=== PATIENT | male | born 1955 | race Caucasian/White ===

== ENCOUNTER 2017-08-18 10:49 | Emergency (ER) | payer MEDICARE ==
[~2017-08-18] VITALS: Ht 165.1 cm; Wt 85.8 kg
[~2017-08-18 10:49] MED LIST: CYCL-259 PO; ENAL10TA PO; IBUP-1222 PO; METF10002 PO
[2017-08-18] MEDS ORDERED: MULT-658 PO (12:02)
[2017-08-18] MEDS ORDERED: MORPHINE SULFATE 4 MG/ML, 1ML IVPush PRN (12:30)
[2017-08-18] MEDS ORDERED: SODIUM CHLORIDE FLUSH 10ML SYR IVF ONE (12:30)
[2017-08-18] MEDS ORDERED: MORPHINE SULFATE 4 MG/ML, 1ML ONE (12:48)
[2017-08-18 12:53] LABS: BASOPHILS # (AUTO) 0.03 x10^3/uL (0-0.1); BASOPHILS % (AUTO) 0 % (0-1); EOSINOPHILS # (AUTO) 0.16 x10^3/uL (0-0.4); EOSINOPHILS % (AUTO) 2 % (1-7); LYMPHOCYTES # (AUTO) 2.59 x10^3/uL (1-3.4); LYMPHOCYTES % (AUTO) 31 % (22-44); MD NO; MEAN CORPUSCULAR HEMOGLOBIN 30.5 pg (27.5-34.5); MEAN CORPUSCULAR HGB CONC 33.9 g/dL (33.2-36.2); MEAN CORPUSCULAR VOLUME 89.9 fL (81-97); MEAN PLATELET VOLUME 7.3 fL (7.4-10.4); MONOCYTES # (AUTO) 0.78 x10^3/uL (0.2-0.8); MONOCYTES % (AUTO) 9 % (2-9); NEUTROPHILS # (AUTO) 4.76 x10^3/uL (1.8-6.8); NEUTROPHILS % (AUTO) 57 % (42-75); PLATELET COUNT 241 x10^3/uL (130-400); RED BLOOD COUNT 4.94 x10^6/uL (4.38-5.82); RED CELL DISTRIBUTION WIDTH 14.5 % (9.4-14.8)
[2017-08-18 12:53] LABS: MICROSCOPIC NOT IND
[2017-08-18 12:58] LABS: CULTURE INDICATED? NO
[2017-08-18 13:07] LABS: ALANINE AMINOTRANSFERASE 27 U/L (12-78); ALBUMIN 3.4 g/dL (3.4-5.0); ANION GAP 6 mmol/L (5-15); CALCIUM 8.4 mg/dL (8.5-10.1); CHLORIDE 108 mmol/L (98-107); CREATININE 0.94 mg/dL (0.7-1.3)
[2017-08-18 13:09] LABS: ALKALINE PHOSPHATASE 78 U/L (45-117); BILIRUBIN,TOTAL 0.5 mg/dL (0.2-1.0); TOTAL PROTEIN 7.1 g/dL (6.4-8.2)
[2017-08-18] MEDS ORDERED: OMNIPAQUE 350 MG/ML, 100ML BOTTLE ONE (14:12)
[2017-08-18 16:20] VITALS: BP 139/79
== END 2017-08-18 16:24 | disposition home or self-care (01) ==
LOC: ED 15:45
DX: R10.32 Left lower quadrant pain (principal); I10 Essential (primary) hypertension; E11.9 Type 2 diabetes mellitus without complications; J44.9 Chronic obstructive pulmonary disease, unspecified; Z90.49 Acquired absence of other specified parts of digestive tract
CPT/HCPCS: 36415; 74177; 80053; 81003; 83690; 85025; 93005; 96374; 99285; Q9967

== ENCOUNTER 2019-10-28 19:23 | Inpatient (IN) | payer MEDICARE ==
[~2019-10-28] VITALS: Ht 165.1 cm; Wt 82.2 kg
[~2019-10-28 19:23] MED LIST changes: +MULT-658 PO
--- NOTE | 2019-10-28 19:53 | NUR ---
PT WHEELED TO ROOM, TALKING WITH TECH.
--- NOTE | 2019-10-28 20:01 | NUR ---
PT COMING FROM HOME FOR L SIDE SUPRAPUBIC PAIN THAT STARTED 2 DAYS AGO. PT NOTES INCREASED URINARY FREQUENCY STARTING TODAY, STATES "IT FEELS LIKE I NEED MORE PRESSURE TO GO." UNKNOW PROSTATE HX, USED TO TAKE AN UNKNOWN PROSTATE MED, NO LONGER TAKES IT.
[2019-10-28] MEDS ORDERED: ONDANSETRON 2MG/ML, 2ML ONE (20:23)
[2019-10-28] MEDS ORDERED: MORPHINE SULFATE 4 MG/ML, 1ML ONE (20:24)
[2019-10-28] MEDS ORDERED: MORPHINE SULFATE 4 MG/ML, 1ML IVPush PRN (20:30)
[2019-10-28] MEDS ORDERED: ONDANSETRON 2MG/ML, 2ML IVPush ONE (20:30)
[2019-10-28] MEDS ORDERED: SODIUM CHLORIDE FLUSH 10ML SYR IVF ONE (20:30)
--- NOTE | 2019-10-28 20:38 | NUR ---
PT MEDICATED TO MAR, LAYING IN BED, EYES CLOSED, RESPIRATIONS EVEN AND UNLABORED, WILL CONTINUE TO MONITOR.
[2019-10-28 20:42] LABS: MICROSCOPIC NOT IND
[2019-10-28 20:56] LABS: BASOPHILS # (AUTO) 0.05 x10^3/uL (0-0.1); BASOPHILS % (AUTO) 1 % (0-1); EOSINOPHILS # (AUTO) 0.15 x10^3/uL (0-0.4); EOSINOPHILS % (AUTO) 2 % (1-7); LYMPHOCYTES # (AUTO) 2.25 x10^3/uL (1-3.4); LYMPHOCYTES % (AUTO) 26 % (22-44); MD NO; MEAN CORPUSCULAR HEMOGLOBIN 30.5 pg (27.5-34.5); MEAN CORPUSCULAR HGB CONC 33.5 g/dL (33.2-36.2); MEAN CORPUSCULAR VOLUME 91.1 fL (81-97); MEAN PLATELET VOLUME 7.8 fL (7.4-10.4); MONOCYTES # (AUTO) 0.76 x10^3/uL (0.2-0.8); MONOCYTES % (AUTO) 9 % (2-9); NEUTROPHILS # (AUTO) 5.41 x10^3/uL (1.8-6.8); NEUTROPHILS % (AUTO) 63 % (42-75); PLATELET COUNT 203 x10^3/uL (130-400); RED BLOOD COUNT 5.36 x10^6/uL (4.38-5.82); RED CELL DISTRIBUTION WIDTH 14.7 % (9.4-14.8)
[2019-10-28 21:03] LABS: ALANINE AMINOTRANSFERASE 30 U/L (12-78); ALBUMIN 3.2 g/dL (3.4-5.0); ANION GAP 6 mmol/L (5-15); CALCIUM 8.3 mg/dL (8.5-10.1); CHLORIDE 106 mmol/L (98-107); CREATININE 1.27 mg/dL (0.7-1.3)
[2019-10-28 21:06] LABS: ALKALINE PHOSPHATASE 76 U/L (45-117); BILIRUBIN,TOTAL 0.4 mg/dL (0.2-1.0)
--- NOTE | 2019-10-28 21:16 | NUR ---
PT SLEEPING, EYES CLOSED, RESPIRATIONS EVEN AND UNLABORED, SNORING HEARD. REMAINS AT BEDSIDE.
--- NOTE | 2019-10-28 21:22 | NUR ---
PT TO IMAGING.
[2019-10-28] MEDS ORDERED: OMNIPAQUE 350 MG/ML, 100ML BOTTLE ONE (21:31)
--- NOTE | 2019-10-28 22:15 | NUR ---
ERP TO BEDSIDE, UPDATING PT ON POC. ALL NEEDS MET AT THIS TIME.
--- NOTE | 2019-10-28 22:43 | NUR ---
ADMITTING MD TO BEDSIDE.
[2019-10-28] MEDS ORDERED: LISI-170 PO (22:46)
--- NOTE | 2019-10-28 22:55 | NUR ---
REPORT GIVEN TO LUZ RODRIGUEZ.
[2019-10-28] MEDS ORDERED: hydrALAzine 20 MG/ML, 1ML IVPush PRN (23:00)
[2019-10-28] MEDS ORDERED: SODIUM CHLORIDE FLUSH 10ML SYR IVF PRN (23:00)
[2019-10-28] MEDS ORDERED: TRAZODONE 50MG TABLET PO PRN (23:00)
[2019-10-28] MEDS ORDERED: ONDANSETRON 2MG/ML, 2ML IVPush PRN (23:00)
[2019-10-28] MEDS: LACTATED RINGERS 1,000 ML IV SCH (23:00)
[2019-10-28] MEDS ORDERED: GABAPENTIN 300 MG CAPSULE PO PRN (23:00)
[2019-10-28] MEDS ORDERED: morphine SULFATE 10 MG/ML, 1ML IVPush PRN (23:00)
[2019-10-28] MEDS ORDERED: ACETAMINOPHEN 325 MG TABLET PO PRN (23:00)
[2019-10-28 23:45] VITALS: BP 153/81
[2019-10-29] MEDS ORDERED: INSULIN LISPRO 100 UNIT/ML, 3ML VIAL SQ-INSULIN ONE (00:30)
[2019-10-29] MEDS: NICOTINE 21 MG/24 HR PATCH.TD24 TD SCH ×2 (00:40→23:54)
[2019-10-29 01:01] VITALS: BP 160/89
[2019-10-29] MEDS: INSULIN LISPRO 100 UNITS/ML, PEN SQ-INSULIN SCH ×4 (07:00→20:52)
[2019-10-29 07:17] VITALS: BP 157/81
[2019-10-29] MEDS: TAMSULOSIN 0.4 MG CAP.ER.24H PO SCH (08:01)
[2019-10-29] MEDS: SENNA/DOCUSATE TABLET PO SCH (08:02)
[2019-10-29] MEDS: LACTATED RINGERS 1,000 ML IV SCH ×2 (08:03→20:52)
[2019-10-29 14:51] VITALS: BP 124/80
[2019-10-29 19:11] VITALS: BP 148/79
[2019-10-30 00:40] VITALS: BP 151/79
[2019-10-30 05:50] LABS: CHLORIDE 109 mmol/L (98-107)
[2019-10-30 05:57] LABS: ALANINE AMINOTRANSFERASE 41 U/L (12-78); ALKALINE PHOSPHATASE 80 U/L (45-117); ANION GAP 9 mmol/L (5-15); BILIRUBIN,TOTAL 0.6 mg/dL (0.2-1.0); CALCIUM 8.7 mg/dL (8.5-10.1); CREATININE 0.99 mg/dL (0.7-1.3); TOTAL PROTEIN 6.6 g/dL (6.4-8.2)
[2019-10-30 07:24] LABS: BASOPHILS # (AUTO) 0.04 x10^3/uL (0-0.1); BASOPHILS % (AUTO) 1 % (0-1); EOSINOPHILS # (AUTO) 0.11 x10^3/uL (0-0.4); EOSINOPHILS % (AUTO) 1 % (1-7); LYMPHOCYTES # (AUTO) 1.86 x10^3/uL (1-3.4); LYMPHOCYTES % (AUTO) 24 % (22-44); MD NO; MEAN CORPUSCULAR HEMOGLOBIN 30.5 pg (27.5-34.5); MEAN CORPUSCULAR HGB CONC 33.6 g/dL (33.2-36.2); MEAN CORPUSCULAR VOLUME 90.8 fL (81-97); MEAN PLATELET VOLUME 7.2 fL (7.4-10.4); MONOCYTES # (AUTO) 0.54 x10^3/uL (0.2-0.8); MONOCYTES % (AUTO) 7 % (2-9); NEUTROPHILS # (AUTO) 5.29 x10^3/uL (1.8-6.8); NEUTROPHILS % (AUTO) 68 % (42-75); PLATELET COUNT 185 x10^3/uL (130-400); RED BLOOD COUNT 5.12 x10^6/uL (4.38-5.82); RED CELL DISTRIBUTION WIDTH 14.4 % (9.4-14.8)
[2019-10-30 08:02] VITALS: BP 134/82
[2019-10-30] MEDS ORDERED: THIAMINE 100MG TABLET PO SCH (09:00)
[2019-10-30] MEDS ORDERED: FOLIC ACID 1 MG TABLET PO SCH (09:00)
[2019-10-30] MEDS: SENNA/DOCUSATE TABLET PO SCH (09:00)
[2019-10-30] MEDS: TAMSULOSIN 0.4 MG CAP.ER.24H PO SCH (09:02)
[2019-10-30] MEDS: INSULIN LISPRO 100 UNITS/ML, PEN SQ-INSULIN SCH ×2 (09:02→11:00)
[2019-10-30 14:45] VITALS: BP 160/81
[2019-10-30] MEDS ORDERED: ATOR40TA78 PO (16:34)
== END 2019-10-30 16:39 | disposition home or self-care (01) | DRG 440 ==
LOC: ED 21:06 → EDIP 22:48 → 3N 23:16 → DCLOUNGE 10-30 16:35
PROVIDERS: ADMIT Family Medicine; ATTEND Family Medicine
DX: K85.20 Alcohol induced acute pancreatitis without necrosis or infection (principal); E11.65 Type 2 diabetes mellitus with hyperglycemia; E11.40 Type 2 diabetes mellitus with diabetic neuropathy, unspecified; I10 Essential (primary) hypertension; F17.210 Nicotine dependence, cigarettes, uncomplicated; F10.20 Alcohol dependence, uncomplicated; J44.9 Chronic obstructive pulmonary disease, unspecified; Z96.641 Presence of right artificial hip joint; N40.0 Benign prostatic hyperplasia without lower urinary tract symptoms; K40.90 Unilateral inguinal hernia, without obstruction or gangrene, not specified as recurrent; Z91.14 Patient's other noncompliance with medication regimen; Z90.49 Acquired absence of other specified parts of digestive tract; Z88.0 Allergy status to penicillin; Z88.8 Allergy status to other drugs, medicaments and biological substances; Z79.84 Long term (current) use of oral hypoglycemic drugs; Z82.49 Family history of ischemic heart disease and other diseases of the circulatory system
CPT/HCPCS: 36415; 74177; 80053; 81003; 82962; 83036; 83690; 84478; 85025; 99285; G0378; J2405; Q9967; J1815; J2270; J7120

== ENCOUNTER 2020-03-18 10:26 | Emergency (ER) | payer MEDICARE ==
[~2020-03-18] VITALS: Ht 165.1 cm; Wt 79.2 kg
[~2020-03-18 10:26] MED LIST changes: +ATOR40TA78 PO; -ENAL10TA PO; +ENAL10TA9 PO; +LISI-170 PO
[2020-03-18] MEDS ORDERED: ONDANSETRON ODT 4 MG PO ONE (11:30)
[2020-03-18] MEDS ORDERED: HYDROcodone/APAP 5/325 TABLET PO ONE (11:30)
[2020-03-18] MEDS ORDERED: ONDANSETRON ODT 4 MG ONE (11:37)
[2020-03-18] MEDS ORDERED: HYDROcodone/APAP 5/325 TABLET ONE (11:37)
--- NOTE | 2020-03-18 11:41 | NUR ---
FIRST CONTACT W/ PT R/T PT LOAD. THIS IS A 64 YO M W/ C/O GERNAL ABD PAIN XSEVERAL DAYS. PT DENIES N/V. PT RESTING ON GURNEY W/ CALL LIGHT IN REACH AND FAMILY AT BEDSIDE. PT MEDCIATED PER EMAR. PROVIDED W/ URINAL AND EDUCATED ON NEED FOR URINE SAMPLE. RESP EVEN AND UNLABORED, NADN. AWAITING US.
[2020-03-18 11:42] VITALS: BP 165/96
[2020-03-18 12:11] LABS: BASOPHILS % (AUTO) 1 % (0-1); EOSINOPHILS % (AUTO) 2 % (1-7); LYMPHOCYTES % (AUTO) 33 % (22-44); MEAN CORPUSCULAR HEMOGLOBIN 30.7 pg (27.5-34.5); MEAN CORPUSCULAR HGB CONC 33.3 g/dL (33.2-36.2); MEAN PLATELET VOLUME 7.3 fL (7.4-10.4); MONOCYTES % (AUTO) 9 % (2-9); NEUTROPHILS % (AUTO) 56 % (42-75); PLATELET COUNT 252 x10^3/uL (130-400); RED BLOOD COUNT 5.18 x10^6/uL (4.38-5.82); RED CELL DISTRIBUTION WIDTH 13.7 % (9.4-14.8)
[2020-03-18 12:15] LABS: MD NO
--- NOTE | 2020-03-18 12:16 | NUR ---
PT IN US
[2020-03-18 12:23] LABS: ALBUMIN 3.5 g/dL (3.4-5.0); ANION GAP 5 mmol/L (5-15); CALCIUM 8.7 mg/dL (8.5-10.1); CHLORIDE 107 mmol/L (98-107)
[2020-03-18 12:26] LABS: ALANINE AMINOTRANSFERASE 35 U/L (12-78); ALKALINE PHOSPHATASE 82 U/L (45-117); BILIRUBIN,TOTAL 0.6 mg/dL (0.2-1.0); CREATININE 1.21 mg/dL (0.7-1.3); TOTAL PROTEIN 7.1 g/dL (6.4-8.2)
[2020-03-18 13:14] LABS: MICROSCOPIC AUTO
== END 2020-03-18 13:54 | disposition home or self-care (01) ==
LOC: ED 11:49
DX: N45.1 Epididymitis (principal); E78.5 Hyperlipidemia, unspecified; I10 Essential (primary) hypertension; E11.9 Type 2 diabetes mellitus without complications; J44.9 Chronic obstructive pulmonary disease, unspecified; Z90.49 Acquired absence of other specified parts of digestive tract; Z88.2 Allergy status to sulfonamides; Z88.1 Allergy status to other antibiotic agents
CPT/HCPCS: 36415; 76870; 80053; 81001; 83690; 85025; 87077; 87086; 99284; Q0162; 87186

== ENCOUNTER 2020-11-28 09:50 | Emergency (ER) | payer MEDICARE ==
[~2020-11-28] VITALS: Ht 162.6 cm; Wt 79.0 kg
[~2020-11-28 09:50] MED LIST changes: -CYCL-259 PO; +CYCL10TA2 PO
[2020-11-28 10:04] VITALS: BP 161/80
--- NOTE | 2020-11-28 11:46 | NUR ---
Pt ambulatory to bathroom with steady gait. MD Rolon back to bedside to update pt on POC including DC.
== END 2020-11-28 11:54 | disposition home or self-care (01) ==
LOC: ED 11:04
DX: K40.91 Unilateral inguinal hernia, without obstruction or gangrene, recurrent (principal); I10 Essential (primary) hypertension; E11.9 Type 2 diabetes mellitus without complications; F17.200 Nicotine dependence, unspecified, uncomplicated; Z88.0 Allergy status to penicillin; Z88.1 Allergy status to other antibiotic agents
CPT/HCPCS: 76857; 99284